=== PATIENT | male | born 1950 | race Caucasian/White ===

== ENCOUNTER 2022-01-20 13:43 | Inpatient (IN) | payer SELFPAY ==
[2022-01-20] MEDS ORDERED: VERAPAMIL 2.5 MG/ML 2 ML AMP ONE ×2 (13:50→13:53)
[2022-01-20] MEDS ORDERED: fentaNYL (PF) 50 MCG/ML 2 ML AMP ONE (14:18)
[2022-01-20] MEDS ORDERED: HEPARIN SODIUM 1,000 UN/ML (10ML VL) ONE (14:20)
[2022-01-20] MEDS ORDERED: IV FLUID CONTINUATION 1,000 ML IV ONE (14:20)
[2022-01-20] MEDS ORDERED: fentaNYL (PF) 50 MCG/ML 2 ML AMP IV ONE (14:22)
[2022-01-20] MEDS ORDERED: LIDOCAINE 0.5% (PF) 5 MG/ML (50 ML SDV) SQ ONE (14:25)
[2022-01-20] MEDS ORDERED: VERAPAMIL SYRINGE (5 MG/10 ML) INTRAARTER ONE (14:27)
[2022-01-20] MEDS ORDERED: HEPARIN SODIUM 1,000 UN/ML (10ML VL) IV ONE (14:37)
[2022-01-20] MEDS ORDERED: IOPAMIDOL-370 125ML BTL INJ ONE (14:46)
[2022-01-20] MEDS ORDERED: NITROGLYCERIN 1000MCG/10ML SYRINGE INTRACORON ONE (14:47)
[2022-01-20] MEDS ORDERED: IOPAMIDOL-370 100ML BTL INJ ONE (15:00)
[2022-01-20] MEDS ORDERED: ZOLPIDEM 5 MG TAB PO PRN (15:16)
[2022-01-20] MEDS ORDERED: RX INFO: IV CONTRAST WAS GIVEN 1 EACH MISC MISCELLANE PRN (15:16)
[2022-01-20] MEDS ORDERED: ATROPINE SULFATE 0.1 MG/ML 10ML SYRINGE IV PRN (15:16)
[2022-01-20] MEDS ORDERED: NITROGLYCERIN SL TABS 0.4 MG TAB SUBLINGUAL PRN (15:16)
[2022-01-20] MEDS ORDERED: MAG HYDROX/AL HYDROX/SIMETH 30 ML CUP PO PRN (15:16)
[2022-01-20 15:20] LABS: Glucose,Whole Blood 116 mg/dL (70-110)
--- NOTE | 2022-01-20 15:25 | P.CRDCN ---
History of Present Illness Consult date: 01/20/22 History of present illness: History of Present Illness: The patient is a 71-year-old male with a known history of CAD status post stenting of mid LAD in 2002 history of hypertension, hyperlipidemia who has been doing well from the cardiac standpoint. He has a known mild impairment of the systolic function with ejection fraction of 40-45% to today while sitting having breakfast had an episode of chest discomfort. He went to the emergency room at [facility] and was found to have evidence of ST segment elevation involving leads 2, 3, aVF and V5 and V6 with T wave inversion in lead aVL. He was transferred for emergency cardiac catheterization the patient was evaluated in the cardiac catheterization laboratory. He had improved discomfort no dyspnea. He has been active physically until today without any limitation. He denies any dizziness, palpitation or syncope, he has no PND, orthopnea or peripheral edema. His coronary risk factors are positive for hypertension, hyperlipidemia he is a nonsmoker. Medications: Aspirin once a day, captopril 12-1/2 mg twice a day, Lipitor 80 mg daily, metoprolol 25 mg twice a day Review of Systems: Respiratory: No history of asthma, bronchitis or recent cough. GI: No nausea or vomiting . No history of peptic ulcer disease. No recent GI bleed. : No hematuria or dysuria. Nervous System: No stroke or seizure. Physical Examination: 71-year-old male, alert and oriented no distress,Blood pressure 135/70, Heart rate 70 Head: Normocephalic. Eyes: Sclerae nonicteric. Neck: Good carotid upstroke, no bruit, no jugular venous distention. Lungs: Clear to auscultation. Heart: Regular rate and rhythm, S1-S2, no S3, no rub. Systolic ejection murmur. Abdomen: Soft nontender, positive bowel sounds no organomegaly. Extremities: No edema, intact distal pulses. Labs: Potassium 4.2, creatinine 1.4, hemoglobin 14.3, high-sensitivity troponin 2891. EKG: Sinus mechanism with evidence consistent of inferolateral wall myocardial infarction Impression: 1. Acute inferolateral wall myocardial infarction 2. Prior angioplasty and stenting of the LAD in 2002 3. Hypertension 4. Hyperlipidemia Plan: 1. Proceed with emergent cardiac catheterization, the risks and the complications were discussed with the patient who was in full understanding and agreement 2. Echocardiogram with Doppler 3. Serial enzymes 4. Resume statin and beta brianne 5. Depending on his progress further recommendations be made, thank you for this consult we will follow with you. Medications and Allergies Allergies Allergy/AdvReac Type Severity Reaction Status Date / Time neomycin Allergy Rash/Hives Verified 01/20/22 14:13 Physical Exam Vitals: Intake and Output 01/20/22 01/20/22 01/20/22 06:59 14:59 22:59 Intake Total 50 Balance 50 Intake: IV 50 Other: Weight 76.204 kg Results Current Medications Generic Name Dose Route Start Last Admin Trade Name Freq PRN Reason Stop Dose Admin Al Hydroxide/Mg Hydroxide 30 ml 01/20/22 15:16 Mag Hydrox/Al Hydrox/Simeth 30 Ml Cup PO Q4HR PRN Heartburn Aspirin 81 mg 01/21/22 09:00 Aspirin 81 Mg PO DAILY [facility] Atorvastatin Calcium 80 mg 01/20/22 21:00 Atorvastatin 80 Mg Tab PO HS NANCY Atropine Sulfate 0.5 mg 01/20/22 15:16 Atropine Sulfate 0.1 Mg/Ml 10ml Syringe IV ONCE PRN Symptomatic Bradycardia Clopidogrel Bisulfate 75 mg 01/21/22 09:00 Clopidogrel 75 Mg Tab PO DAILY NANCY Protocol Sodium Chloride 1,000 ml/ IV 1,000 mls @ 76.204 mls/hr 01/20/22 15:30 Solution IV 01/20/22 19:31 .Q13H8M NANCY 1 ML/KG/HR Lisinopril 5 mg 01/21/22 09:00 Lisinopril 10 Mg Tab PO DAILY [facility] Metoprolol Tartrate 25 mg 01/20/22 21:00 Metoprolol Tartrate 25 Mg Tab PO BID [facility] Miscellaneous Information 1 each 01/20/22 15:16 Rx Info: Iv Contrast Was Given 1 Each Misc MISCELLANE 01/22/22 15:16 DAILY PRN Per Protocol Nitroglycerin 0.4 mg 01/20/22 15:16 Nitroglycerin Sl Tabs 0.4 Mg Tab SUBLINGUAL Q5M PRN Chest Pain Zolpidem Tartrate 5 mg 01/20/22 15:16 Zolpidem 5 Mg Tab PO HS PRN Insomnia Intake and Output 01/20/22 01/20/22 01/20/22 06:59 14:59 22:59 Intake Total 50 Balance 50 Intake: IV 50 Other: Weight 76.204 kg Patient Weight 01/21/22 06:59 Weight 76.204 kg
[2022-01-20] MEDS ORDERED: SODIUM CHLORIDE 0.9% 1,000 ML in EMPTY BAG 1 BAG IV SCH (15:30)
--- NOTE | 2022-01-20 15:33 | P.CARDCATH ---
Date of Procedure: 01/20/22 Description of Procedure: Cardiac Catheterization: The patient is a 71-year-old male who presented with an acute ST segment elevation consistent with inferolateral wall myocardial infarction. Recommendations were made regarding cardiac catheterization, the risks and the complications were discussed with the patient who is in full understanding and agreement. Procedure Description: Patient was brought to cardiac cath rn in fasting semi-sedated state after receiving Fentanyl and Benadryl achieiving moderate conscious sedated state. Using Xylocaine Anesthesia and Seldinger technique, a 6-Maltese sheath was introduced in the right radial artery . Subsequently, selective coronary angiography was performed using a 6-Maltese 4 bend right Flora guiding catheter and 6-Maltese 3.5 bend Flora guiding catheter. Multiple views of the coronary artery including hemiaxial views were obtained. After performing angioplasty and stenting to catheter were removed. The right Flora catheter was used to cross the aortic valve and LVEDP was calculated. Following that, catheter and sheath were removed. Hemostasis was obtained with deployment of TR band . There was no immediate complication. Patient was returned to room in stable condition. Of note, the patient received a total of 5000 units of intravenous heparin as well as intra-arterial verapamil. There was no immediate complications. His ACT was monitored, he was given loading dose of clopidogrel prior to transfer. He had no chest discomfort at the end of the procedure. Findings: Left main: This is a large size vessel, bifurcating to LAD and left circumflex, left main has no high-grade stenosis. LAD: This is a large size vessel, reaching to the apex, giving rise to a large diagonal branch. The stented segment after the takeoff of the diagonal branch is patent with 60-70% stenosis Left circumflex: This is a nondominant vessel giving rise to 2 obtuse marginal branch and the second one is large in caliber. The distal segment of the second obtuse marginal branch is totally excluded with evidence of intracoronary thrombus. RCA: This is a dominant vessel large in caliber, has a superior takeoff. The vessel has diffuse intimal disease of 30-40% with no high-grade stenosis Left Ventriculogram: Was not performed Hemodynamics: There was no gradient across the aortic valve, LVEDP 12-14 to mercury Angioplasty: After cannulating the left main a 0.014 BMW J-wire with the help of a straight fine cross microcatheter the lesion was crossed and the wire was positioned distally. Subsequently a 2.0 x 12 mm Treck was advanced and when inflation was done at 8 mary. After removing the balloon a 2.0 x 15 mm Resolute Johnson stent was deployed and dilated at 14 mary. After the last inflation and after appropriate wait the balloon and the guidewire withdrawn back in the guiding catheter. Images were obtained and repeated and revealed stable successful stenting. The patient's discomfort resolved at the end of the procedure, there was no immediate complications. Conclusion: 1. Totally occluded distal second OM was successful stenting and reduction of stenosis from 100% to 0% 2. Moderate in-stent stenosis in the stented proximal to mid LAD 3. Mild to moderate disease in the RCA 4. Right dominance Recommendations: Patient will continue on aspirin and Plavix for at least 1 year without any disruption, aggressive coronary risks modification will be continued. The procedure as well as the findings and recommendations were discussed with the patient and his family and they were in full understanding and agreement. Duration of sedation is 36 minutes.
[2022-01-20] MEDS: ATORVASTATIN 80 MG TAB PO SCH (20:40)
[2022-01-20] MEDS: METOPROLOL TARTRATE 25 MG TAB PO SCH (20:41)
--- NOTE | 2022-01-21 07:08 | P.PN ---
Subjective History of Present Illness: The patient is a 71-year-old male with a known history of CAD status post stenting of mid LAD in 2002 history of hypertension, hyperlipidemia who has been doing well from the cardiac standpoint. He has a known mild impairment of the systolic function with ejection fraction of 40-45% to today while sitting having breakfast had an episode of chest discomfort. He went to the emergency room at [facility] and was found to have evidence of ST segment elevation involving leads 2, 3, aVF and V5 and V6 with T wave inversion in lead aVL. He was transferred for emergency cardiac catheterization the patient was evaluated in the cardiac catheterization laboratory. He had improved discomfort no dyspnea. He has been active physically until today without any limitation. He denies any dizziness, palpitation or syncope, he has no PND, orthopnea or peripheral edema. His coronary risk factors are positive for hypertension, hyperlipidemia he is a nonsmoker. Medications: Aspirin once a day, captopril 12-1/2 mg twice a day, Lipitor 80 mg daily, metoprolol 25 mg twice a day 11/22 Patient seen and examined. Patient underwent heart catheterization from the right radial approach yesterday and underwent stenting of the OM branch. He denies any further chest pain after his stenting. Currently maintained on aspirin and Plavix. He admits his home dose of captopril is nearly $150 and therefore we will switch to lisinopril going home. Blood pressures mildly elevated in the 130s to 150 range. Physical Examination: Vitals reviewed Head: Normocephalic. Eyes: Sclerae nonicteric. Neck: Good carotid upstroke, no bruit, no jugular venous distention. Lungs: Clear to auscultation. Heart: Regular rate and rhythm, S1-S2, no S3, no rub. Systolic ejection murmur. Abdomen: Soft nontender, positive bowel sounds no organomegaly. Extremities: No edema, intact distal pulses. Impression: 1. Acute inferolateral wall myocardial infarction, s/p PCI OM 2. Prior angioplasty and stenting of the LAD in 2002 3. Hypertension 4. Hyperlipidemia 5. History of ischemic cardiomyopathy with EF 40-45% Plan: Continue with dual antiplatelets with aspirin and Plavix. Continue with high intensity statin. Patient with borderline EF previously 40-45% range and we will await echocardiogram. Optimize heart failure regimen as able. Change captopril to lisinopril going home given expense. Increase lisinopril from 5-10 and monitor response of blood pressure. Further recommendations to follow. Likely discharge home tomorrow afternoon if patient remains stable. Objective - Vital Signs Vital signs: Vital Signs Temp 98.3 F 01/21/22 04:00 Pulse 61 01/21/22 04:00 Resp 11 L 01/21/22 04:00 BP 136/78 01/21/22 04:00 Pulse Ox 94 L 01/21/22 04:00 FiO2 Intake & Output 01/20/22 01/21/22 01/21/22 18:59 06:59 18:59 Intake Total 450 240 Output Total 450 1600 Balance 0 -1360 Weight 76.204 kg 77.8 kg Intake: IV 200 Sodium Chloride 0.9% 1, 150 000 ml In Empty Bag 1 bag @ 1 ML/KG/HR 76.204 mls/ hr IV .Q13H8M REPLACED BY [facility] Rx#: [id number] Oral 250 240 Output: Urine 450 1600 Other: Voiding Method Urinal Urinal - Labs CBC & Chem 7: 01/21/22 05:33 Labs: Abnormal Lab Results - Last 24 Hours (Table) 01/20/22 01/20/22 01/20/22 Range/Units 15:18 16:25 18:48 Glucose (74-99) mg/dL POC Glucose (mg/dL) 116 H (70-110) mg/dL Troponin I 19.900 H* 29.000 H* (0.000-0.034) ng/mL 01/21/22 Range/Units 05:33 Glucose 114 H (74-99) mg/dL POC Glucose (mg/dL) (70-110) mg/dL Troponin I (0.000-0.034) ng/mL
[2022-01-21] MEDS ORDERED: lisinopriL 5 MG TAB PO SCH (09:00)
[2022-01-21] MEDS: METOPROLOL TARTRATE 25 MG TAB PO SCH ×2 (09:04→19:42)
[2022-01-21] MEDS: CLOPIDOGREL 75 MG TAB PO SCH (09:04)
[2022-01-21] MEDS: lisinopriL 10 MG TAB PO SCH (09:05)
[2022-01-21] MEDS: ASPIRIN 81 MG PO SCH (09:05)
--- NOTE | 2022-01-21 11:01 | CA ---
Transthoracic Echo Report Name: Prince Burciaga Age: 71 Gender: M : 1950 Exam Date: 01/21/2022 08:48 Exam Location: [place] [facility] Ht (in): 69 Wt (lb): 171 Ordering Physician: Nancy Comer MD ([id number]) Attending/Referring Phys: Brand Executive Ayana Celis RDCS Procedure CPT: Indications: CAD Cardiac Hx: Technical Quality: Contrast 1: Total Dose (mL): Contrast 2: Total Dose (mL): MEASUREMENTS (Male / Female) Normal Values 2D ECHO LV Diastolic Diameter PLAX 5.0 cm 4.2 - 5.9 / 3.9 - 5.3 cm LV Systolic Diameter PLAX 4.2 cm IVS Diastolic Thickness 1.1 cm 0.6 - 1.0 / 0.6 - 0.9 cm LVPW Diastolic Thickness 1.4 cm 0.6 - 1.0 / 0.6 - 0.9 cm LV Relative Wall Thickness 0.5 RV Internal Dim ED PLAX 3.1 cm LA Systolic Diameter LX 3.4 cm 3.0 - 4.0 / 2.7 - 3.8 cm LA Volume 48.8 cm??? 18 - 58 / 22 - 52 cm??? M-MODE Aortic Root Diameter MM 3.0 cm LA Systolic Diameter MM 4.0 cm LA Ao Ratio MM 1.3 MV E Point Septal Separation 0.7 cm AV Cusp Separation MM 1.8 cm FINDINGS Left Ventricle Left ventricular ejection fraction is estimated at 30-35%. Hypokinetic septum. ventricular apical thrombus. Right Ventricle Normal right ventricular size and function. Right Atrium Normal right atrial size. Left Atrium Left atrial dilatation. Mitral Valve Structurally normal mitral valve. Mild mitral regurgitation. Aortic Valve Tricuspid Valve Structurally normal tricuspid valve. Pulmonic Valve Structurally normal pulmonic valve. Pericardium Normal pericardium. Aorta Normal size aortic root and proximal ascending aorta. CONCLUSIONS Impaired LV function was EF around 35% Apical thrombus was identified Previewed by: Dr. Ventura Jordan MD (Electronically Signed) Final Date: 21 January 2022 10:59
[2022-01-21 12:44] VITALS: BMI 25.3
[2022-01-21] MEDS: ATORVASTATIN 80 MG TAB PO SCH (19:42)
[2022-01-22] MEDS: ASPIRIN 81 MG PO SCH (07:45)
[2022-01-22] MEDS: lisinopriL 10 MG TAB PO SCH (07:45)
[2022-01-22] MEDS: CLOPIDOGREL 75 MG TAB PO SCH (07:45)
[2022-01-22] MEDS: METOPROLOL TARTRATE 25 MG TAB PO SCH (07:45)
[2022-01-22 09:27] VITALS: TEMP 98
[2022-01-22] MEDS ORDERED: APIXABAN 5 MG TAB PO SCH (10:15)
[2022-01-22 11:22] VITALS: BP 94/62; PULSE 69; RESP 16
[2022-01-22 11:58] LABS: Basophils # (A) 0.1 k/uL (0-0.2); Basophils % (A) 1 %; Eosinophils # (A) 0.1 k/uL (0-0.7); Eosinophils % (A) 1 %; HCT 45.8 % (39.0-53.0); HGB 15.3 gm/dL (13.0-17.5); Lymphocytes # (A) 0.7 k/uL (1.0-4.8); Lymphocytes % (A) 10 %; MCH 32.8 pg (25.0-35.0); MCHC 33.4 g/dL (31.0-37.0); MCV 98.2 fL (80.0-100.0); Mean Platelet Volume 7.3; Monocytes # (A) 0.7 k/uL (0-1.0); Monocytes % (A) 9 %; Neutrophils # (A) 5.4 k/uL (1.3-7.7); Neutrophils % (A) 75 %; Platelet Count 218 k/uL (150-450); RBC 4.66 m/uL (4.30-5.90); RDW 13.6 % (11.5-15.5); WBC 7.2 k/uL (3.8-10.6)
[2022-01-22 12:13] LABS: Calcium 8.6 mg/dL (8.4-10.2); Potassium 4.8 mmol/L (3.5-5.1)
--- NOTE | 2022-01-22 13:22 | P.PN ---
Subjective The patient is a 71-year-old male with a known history of coronary artery disease status post stenting of mid LAD in 2002 history of hypertension, hy perlipidemia. He follows in the office with Dr. Comer. He has a known mild impairment of the systolic function with ejection fraction of 40-45% to today while sitting having breakfast had an episode of chest discomfort. He went to the emergency room at [facility] and was found to have evidence of ST segment elevation involving leads 2, 3, aVF and V5 and V6 with T wave inversion in lead aVL. He was transferred for emergency cardiac catheterization the patient was evaluated in the cardiac catheterization. Patient underwent heart catheterization from the right radial approach 01/20/2022 and underwent stenting of the OM branch. Echocardiogram revealed EF of 3035 percent,hypokinetic septum, ventricular apical thrombus noted. Mild mitral regurgitation. 01/22/2022 Patient seen and examined. He denies any further chest pain after his stenting. Currently maintained on aspirin and Plavix.he is also maintained on atorvastatin 80 mg nightly, lisinopril 10 mg daily, metoprolol tartrate 25 mg twice a day. vital signs are stable. Physical Examination: Vitals reviewed Head: Normocephalic. Eyes: Sclerae nonicteric. Neck: Good carotid upstroke, no bruit, no jugular venous distention. Lungs: Clear to auscultation. Heart: Regular rate and rhythm, S1-S2, no S3, no rub. Systolic ejection murmur. Abdomen: Soft nontender, positive bowel sounds no organomegaly. Extremities: No edema, intact distal pulses. Right radial cath site clean dry no hematoma 2+ pulses ASSESSMENT Acute inferolateral wall myocardial infarction, s/p PCI OM on 01/20 Ischemic cardiomyopathy with EF 30-35% Apical Thrombus Prior angioplasty and stenting of the LAD in 2002 Hypertension Hyperlipidemia History of ischemic cardiomyopathy with EF 40-45% PLAN Add Eliquis 5mg BID Case management consulted for coverage Continue with dual antiplatelets with aspirin and Plavix. Continue with high intensity statin, Lisinopril and metoprolol tartrate From cardiology perspective, patient can be discharged home today. Follow up with Dr. Comer in one week Nurse practitioner note has been reviewed by physician. Signing provider agrees with the documented findings, assessment, and plan of care. Objective - Vital Signs Vital signs: Vital Signs Temp 98.0 F 01/22/22 07:42 Pulse 69 01/22/22 11:22 Resp 16 01/22/22 11:22 BP 94/62 01/22/22 11:22 Pulse Ox 96 01/22/22 11:22 FiO2 Intake & Output 01/21/22 01/22/22 01/22/22 18:59 06:59 18:59 Intake Total 120 358 Output Total 875 325 300 Balance -755 -325 58 Weight 77.8 kg Intake: Oral 120 358 Output: Urine 875 325 300 Other: Voiding Method Urinal Toilet Toilet Urinal - Labs CBC & Chem 7: 01/22/22 11:20 01/22/22 11:20 Labs: Abnormal Lab Results - Last 24 Hours (Table) 01/22/22 01/22/22 Range/Units 11:20 11:20 Lymphocytes # 0.7 L (1.0-4.8) k/uL Carbon Dioxide 31 H (22-30) mmol/L BUN 24 H (9-20) mg/dL Creatinine 1.40 H (0.66-1.25) mg/dL Glucose 100 H (74-99) mg/dL
--- NOTE | 2022-01-22 13:26 | P.DS ---
Providers Date of admission: 01/20/22 15:01 Expected date of discharge: 01/22/22 Attending physician: Apollo Quinones Consults: 01/20/22 15:16 Consult Physician Routine Consulting Provider: [facility] Consult Reason/Comments: Post Interventional Patient Do you want consulting provider notified?: Already Contacted Primary care physician: Stated None Plan - Discharge Summary Discharge Rx Participant: Yes New Discharge Prescriptions: New Nitroglycerin Sl Tabs [Nitrostat] 0.4 mg SUBLINGUAL Q5M PRN #25 tab PRN Reason: Chest Pain Clopidogrel [Plavix] 75 mg PO DAILY #90 tab lisinopriL [Zestril] 10 mg PO DAILY #90 tab Apixaban [Eliquis] 5 mg PO BID #60 tab Continue Atorvastatin [Lipitor] 80 mg PO DAILY Metoprolol Tartrate [Lopressor] 25 mg PO BID Changed Aspirin EC [Ecotrin] 81 mg PO DAILY #0 Discontinued captopriL [Captopril] 12.5 mg PO BID Discharge Medication List Atorvastatin [Lipitor] 80 mg PO DAILY 01/20/22 [History] Metoprolol Tartrate [Lopressor] 25 mg PO BID 01/20/22 [History] Apixaban [Eliquis] 5 mg PO BID #60 tab 01/22/22 [Rx] Aspirin EC [Ecotrin] 81 mg PO DAILY #0 01/22/22 [Rx] Clopidogrel [Plavix] 75 mg PO DAILY #90 tab 01/22/22 [Rx] Nitroglycerin Sl Tabs [Nitrostat] 0.4 mg SUBLINGUAL Q5M PRN #25 tab 01/22/22 [Rx] lisinopriL [Zestril] 10 mg PO DAILY #90 tab 01/22/22 [Rx] Follow up Appointment(s)/Referral(s): Nancy Comer MD [STAFF PHYSICIAN] - 01/26/22 3:00 pm (At [facility] Apollo Quinones MD [STAFF PHYSICIAN] - 01/30/22 12:30 pm Patient Instructions/Handouts: Apixaban (By mouth), Heart Catheterization (DC), After Radial Heart Catheterization (GEN) Activity/Diet/Wound Care/Special Instructions: Cardiology Instructions After Cardiac Catheterization with Stent Placement: Please take Aspirin, Plavix and Eliquis for 1 week. AFTER 1 week, stop your aspirin while taking your Eliquis. If your medical transcription editor stops the Eliquis, you will be put back on aspirin. 1. Aspirin as anti-platelet therapy - Aspirin lessens the chance of heart attack and stroke. It helps prevent blood clots from forming, allowing the blood to flow more easily. Each day, you will t lauren one 81 mg (non-enteric coated) tablet daily. You will be taking aspirin as a lifelong medication. Do not stop unless instructed by your doctor. 2. Anti-platelet Therapy. -In addition to aspirin, you will take ONE of the following anti-platelet medications daily. This will help prevent a clot from forming in your stent: Plavix (clopidogrel) -You will need to take your anti-platelet medicine every day for 12 months -Please consult your heart doctor before you stop this medicine. -They may want you to continue for a longer period of time. 3. Statins -A statin medication lowers cholesterol levels in the blood. This helps slow the progression of heart disease. - Please take your statin medication as prescribed by your doctor. -You may be taking one of the following statins: Lipitor (atorvastatin) Other Medications: -ACEI/ Angiotensin II Receptor Vaughn (Your Medication Lisinopril)- can help your heart work better after a heart attack and decrease the amount of damage from a heart attack -Beta vaughn. (your medication: metoprolol tartrate}) Is a medication that protects your heart from stress and can prevent future heart attacks. It can slow your heart rate. It can take weeks for your body to get used to a beta vaughn. The dose may need to be changed a few times as your body adjusts -Eliquis: On your Echocardiogram we found a clot. You were started on a blood thinner, this will be monitored closely in the office Do not stop taking these medicines without talking to your doctor. -Take all other medicines as directed by your doctor. Do not take any extra aspirin or ibuprofen. They can increase your risk of bleeding. Many [id number] drugs contain aspirin. If you are unsure about what the drug contains, check with your pharmacist before taking it. -For mild discomfort, you may take plain Tylenol (acetaminophen). Follow dose directions, but do not take more than 4,000 mg of acetaminophen in 24 hours. Contact your doctor right away or go to the nearest hospital Emergency Room if you have: -Severe angina or chest pain. (This may be a sign of a problem with your stent.) -Excessive bruising, blood in urine/stool or black tarry stools. Healthy LifeStyle It is important to keep a heart healthy lifestyle. This can improve your long- term health and decrease your risk for heart attacks. -Quitting tobacco: the most important thing you can do to protect your health. -Managing your blood cholesterol, blood pressure, weight, and stress. -The importance of regular exercise. -Heart Healthy Diet: Include more plants in your diet. Eat lots of fresh vegetables and fresh fruits. Eat good fats: plant based oils, avocado, nuts, beans, legumes. Eat more seafood. Limit Meat. Switch to whole grains. -Avoid fried foods and animal fats and processed meats Follow up with [facility], Anders Mckay [phone] Discharge Disposition: HOME SELF-CARE
== END 2022-01-22 14:29 | disposition home or self-care (01) | DRG 247 ==
LOC: 2SICU 15:01 → 3SCARD 01-21 17:43
PROVIDERS: ADMIT Internal Medicine; ATTEND Internal Medicine
PROC: B2111ZZ Fluoroscopy of Multiple Coronary Arteries using Low Osmolar Contrast (ICD-10-PCS; principal; 2022-01-20 14:00)
PROC: 4A023N7 Measurement of Cardiac Sampling and Pressure, Left Heart, Percutaneous Approach (ICD-10-PCS; principal; 2022-01-20 14:00)
PROC: 027034Z Dilation of Coronary Artery, One Artery with Drug-eluting Intraluminal Device, Percutaneous Approach (ICD-10-PCS; principal; 2022-01-20 14:00)
DX: I21.19 ST elevation (STEMI) myocardial infarction involving other coronary artery of inferior wall (principal); T82.855A Stenosis of coronary artery stent, initial encounter; I51.3 Intracardiac thrombosis, not elsewhere classified; E78.5 Hyperlipidemia, unspecified; I10 Essential (primary) hypertension; I25.5 Ischemic cardiomyopathy; I34.0 Nonrheumatic mitral (valve) insufficiency; I25.10 Atherosclerotic heart disease of native coronary artery without angina pectoris; Z79.82 Long term (current) use of aspirin; Z79.899 Other long term (current) drug therapy; Z95.5 Presence of coronary angioplasty implant and graft; Z88.1 Allergy status to other antibiotic agents
CPT/HCPCS: 80048; 84484; 85025; 93306; 93458